=== PATIENT | female | born 1955 | race Caucasian/White ===

== ENCOUNTER → 2016-09-16 | Outpatient (CLI) | payer OTHER ==
[~2016-09-16] MED LIST: ATIVAN1 MG PO; CENTRUM SILVER1 EAC4 PO; CIPROFLOXACIN500 M1 PO; FISH OIL 1,0001 EAC5 PO; FLAGYL500 M1 PO; LISINOPRIL10 MG PO; OMEPRAZOLE 20 M20 MG PO; PAIN RELIEF650 MG PO; PERCOCET 5-3251 EACH PO; PRILOSEC 20 MG20 MG PO; TRAZODONE HCL50 MG PO; VITAMIN B-1100 M1 PO; ZOFRAN ODT4 MG PO; [UNRECOGNIZED DRUG - REMARK]
== END ==
LOC: RAD 09:18
DX: M70.32 Other bursitis of elbow, left elbow (principal)

== ENCOUNTER → 2017-11-02 | Outpatient (CLI) | payer OTHER | LOC: CAT 08:59 | DX: I62.00 Nontraumatic subdural hemorrhage, unspecified (principal); I10 Essential (primary) hypertension ==

== ENCOUNTER → 2018-01-02 | Outpatient (CLI) | payer OTHER | LOC: RAD 12:15 | DX: Z12.31 Encounter for screening mammogram for malignant neoplasm of breast (principal) ==

== ENCOUNTER 2018-03-13 20:20 | Emergency (ER) | payer OTHER ==
[~2018-03-13] VITALS: Ht 165.1 cm; Wt 63.5 kg
[2018-03-13] MEDS ORDERED: SYNTHROID25 MC1 PO (20:30)
[2018-03-13] MEDS ORDERED: [UNRECOGNIZED DRUG - REMARK] TOP (20:31)
[2018-03-13] MEDS ORDERED: TOPROL XL25 MG PO (20:31)
[2018-03-13 22:17] VITALS: BP 112/72
== END 2018-03-13 22:18 | disposition home or self-care (01) ==
LOC: ER 20:20
DX: S01.01XA Laceration without foreign body of scalp, initial encounter (principal); I10 Essential (primary) hypertension; E21.3 Hyperparathyroidism, unspecified; F41.9 Anxiety disorder, unspecified; Z98.890 Other specified postprocedural states; W00.0XXA Fall on same level due to ice and snow, initial encounter; Y93.89 Activity, other specified; Y92.89 Other specified places as the place of occurrence of the external cause; Y99.8 Other external cause status

== ENCOUNTER 2018-05-07 08:43 | Emergency (ER) | payer OTHER ==
[~2018-05-07] VITALS: Ht 165.1 cm; Wt 63.5 kg
[~2018-05-07 08:43] MED LIST changes: +SYNTHROID25 MC1 PO; +TOPROL XL25 MG PO; +[UNRECOGNIZED DRUG - REMARK] TOP
[2018-05-07 09:23] LABS: ABSOLUTE NEUTROPHILS 5.3 thou/uL (1.4-8.2); BASOPHILS 0.8 % (0.0-2.0); EOSINOPHILS 1.6 % (0.0-3.0); HEMATOCRIT 41.3 % (37.0-47.0); HEMOGLOBIN 14.2 gm/dL (12.0-15.0); MCH 32.2 pg (26.0-34.0); MCHC 34.3 g/dL (28.0-37.0); MCV 93.8 fL (80.0-100.0); MONOCYTES 9.8 % (1.0-8.0); PLATELET COUNT 318 thou/uL (150-400); POLYS 73.8 % (36.0-66.0); RDW 13.4 % (10.5-14.5); WBC 7.2 thou/uL (4.0-11.0)
[2018-05-07] MEDS ORDERED: ESCITALOPRAM OX10 MG PO (09:35)
[2018-05-07] MEDS ORDERED: ATIVAN0.5 MG PO (09:35)
[2018-05-07 09:37] LABS: CALCIUM 10.3 mg/dL (8.5-10.1); MAGNESIUM 1.8 mg/dL (1.8-2.4); POTASSIUM 4.3 mmol/L (3.5-5.1)
[2018-05-07 12:18] LABS: ALBUMIN 4.2 g/dL (3.4-5.0); DIRECT BILIRUBIN 0.1 mg/dL (<0.1-0.3); TOTAL BILIRUBIN 0.3 mg/dL (<0.1-1.0)
[2018-05-07] MEDS ORDERED: ZOFRAN ODT4 MG PO (12:46)
[2018-05-07] MEDS ORDERED: LIDOCAINE40 MG/1 ML PO (12:46)
[2018-05-07] MEDS ORDERED: BENADRYL A12.5 MG/5 PO (12:46)
[2018-05-07 12:50] VITALS: BP 176/89
== END 2018-05-07 13:14 | disposition home or self-care (01) ==
LOC: ER 08:43
PROVIDERS: Emergency Medicine
DX: F10.129 Alcohol abuse with intoxication, unspecified (principal); Y90.0 Blood alcohol level of less than 20 mg/100 ml; R10.13 Epigastric pain; R00.0 Tachycardia, unspecified; R25.1 Tremor, unspecified; I10 Essential (primary) hypertension; E21.3 Hyperparathyroidism, unspecified; F41.9 Anxiety disorder, unspecified; Z98.890 Other specified postprocedural states

== ENCOUNTER → 2019-01-15 | Outpatient (CLI) | payer OTHER ==
[~2019-01-15] MED LIST changes: +ATIVAN0.5 MG PO; +BENADRYL A12.5 MG/5 PO; +ESCITALOPRAM OX10 MG PO; +LIDOCAINE40 MG/1 ML PO
== END ==
LOC: RAD 10:01
DX: Z12.31 Encounter for screening mammogram for malignant neoplasm of breast (principal)

== ENCOUNTER → 2020-02-24 | Outpatient (CLI) | payer OTHER | LOC: RAD 11:01 | PROVIDERS: ATTEND Obstetrics & Gynecology | DX: Z12.31 Encounter for screening mammogram for malignant neoplasm of breast (principal) ==

== ENCOUNTER → 2020-03-12 | Outpatient (CLI) | payer OTHER | LOC: ULTRA 09:53 | PROVIDERS: ATTEND Family Medicine | DX: N63.21 Unspecified lump in the left breast, upper outer quadrant (principal) ==

== ENCOUNTER → 2020-04-21 | Outpatient (CLI) | payer OTHER ==
--- NOTE | 2020-04-24 18:06 | PATH ---
[facility] [address] [place] [address] PATHOLOGY RPT PROCEDURE Name: AMANDA MURILLO Room #: REG [facility] M.R.#: [id number] Admission: 04/21/20 Date of : 51 Discharge: Report #: [id number] Path Case #: [id number] [facility] Accession Number: [id number] . 01 Material submitted: . breast - LEFT BREAST MASS. Modifiers: left . 02 Diagnosis: Breast, left breast mass 2:00 3 cm from nipple, needle core biopsy: - Fibrocystic changes with stromal fibrosis, columnar cell change and apocrine metaplasia. - Negative for atypia or malignancy. (IUV:pit 04/24/2020) QTP 04/24/2020 1214 Local . 02 Electronically signed: . Luann Colby MD, Pathologist NPI- [id number] . 01 Gross description: . Received in formalin labeled "Amanda Murillo, LT 2:00 3/cm Br" are multiple culp-yellow cylindrical soft tissue cores measuring in aggregate 1.7 x 0.8 x 0.2 cm. The specimen is submitted entirely in cassettes A1-A3. The specimen is removed from the patient at 1122 and placed in formalin at 1120 on 04/21/2020 per requisition. The specimen is removed from formalin at 2150 on 04/23/2020. ([facility]; 04/23/2020) [facility] 04/23/2020 1524 [facility] . 02 Pathologist provided ICD-10: N60.12, N60.32 . 02 CPT . 890459 Specimen Comment: A courtesy copy of this report has been sent to [phone] Specimen Comment: [phone], Specimen Comment: Report sent to ,DR DOMINGUEZ / DR VALDOVINOS Performed at: [facility] [address] [place] [address] [address], [place] [id number] MD Vern Albarran MD Phone: [phone] Performed at: [address] [id number] MD Luann Colby MD Phone: [phone]
== END | disposition home or self-care (01) ==
LOC: ULTRA 10:07
PROVIDERS: ATTEND Obstetrics & Gynecology
DX: N63.21 Unspecified lump in the left breast, upper outer quadrant (principal); R92.8 Other abnormal and inconclusive findings on diagnostic imaging of breast